=== PATIENT | male | born 1975 | race African-American/Black ===

== ENCOUNTER 2022-06-30 13:00 | Emergency (ER) | payer OTHER, MEDICAID ==
[~2022-06-30] VITALS: Ht 177.8 cm; Wt 111.0 kg
[2022-06-30] MEDS ORDERED: GABAPENTIN 100 MG CAP PO ONE (13:45)
[2022-06-30] MEDS ORDERED: HYDROcodone-ACET 5/325MG TAB PO ONE (13:45)
[2022-06-30 14:00] LABS: Basophils # (auto) 0.1 10 ^3/uL (0-0.2); Basophils % (auto) 1.3 % (0.0-2.0); Eosinophils # (auto) 0.1 10 ^3/uL (0-0.8); Eosinophils % (auto) 1.5 % (0.0-7.0); Hematocrit 45.5 % (41.0-53.0); Hemoglobin 15.8 g/dL (13.5-17.5); Lymphocytes % (auto) 44.3 % (10.0-50.0); Mean Corpuscular Hemoglobin 30.1 pg (28.0-32.0); Mean Corpuscular Hgb Conc. 34.8 g/dL (32.0-36.0); Mean Corpuscular Volume 86.3 fL (80.0-100.0); Monocytes # (auto) 0.5 10 ^3/uL (0-1.3); Monocytes % (auto) 6.8 % (0.0-12.0); Neutrophils # (auto) 3.1 10 ^3/uL (1.6-8.6); Neutrophils % (auto) 46.1 % (37.0-80.0); Nucleated Red Blood Cells % 0.2 %; Red Blood Cells 5.27 10^6/uL (4.5-5.90); Red Cell Distribution Width 13.8 % (11.8-14.3); White Blood Cell 6.8 10^3/uL (4.4-10.8)
[2022-06-30 14:28] LABS: Albumin 3.9 g/dL (3.4-5.0); Calcium 9.2 mg/dL (8.5-10.1); Magnesium 2.1 mg/dL (1.6-2.6); Potassium 4.6 mmol/L (3.5-5.1)
[2022-06-30 14:32] LABS: BUN/Creatinine Ratio 9.7; Bilirubin, Total 0.6 mg/dL (0.2-1.0); Total Protein 7.4 g/dL (6.4-8.2)
[2022-06-30] MEDS ORDERED: ACETAMINOPHEN 500 MG TAB PO ONE (15:00)
[2022-06-30] MEDS ORDERED: AMOXICILLIN TRIHYDRATE 250 MG CAP PO ONE (15:00)
[2022-06-30] MEDS ORDERED: AMOX500C2 PO (15:00)
[2022-06-30 16:45] VITALS: BP 147/92
== END 2022-06-30 16:46 | disposition home or self-care (01) ==
LOC: ER 13:00
DX: J18.9 Pneumonia, unspecified organism (principal); R07.89 Other chest pain; F17.210 Nicotine dependence, cigarettes, uncomplicated
CPT/HCPCS: 36415; 71046; 80053; 83735; 83880; 84484; 85025; 93005